=== PATIENT | female | born 1965 | race Caucasian/White ===

== ENCOUNTER 2022-09-02 17:22 | Emergency (ER) | payer OTHER ==
[~2022-09-02 17:22] MED LIST: AMLODIPINE5 MG PO; ATARAX25 MG PO; BACTRIM DS 8001 TA1 PO; BP MEDS; CLINDAMYCIN HC300 MG PO; CLINDAMYCIN300 MG PO; ESTRACE2 MG PO; ESTRODOL; HUMIRA40 MG/0.1 SC; INTEGRA PO; MOTRIN800 MG PO; NORFLEX100 MG PO; Synthroid,Lev150 MCG PO; ZITHROMAX250 MG PO; [UNRECOGNIZED DRUG - OTHER]
[2022-09-02] MEDS ORDERED: HYDROCODONE-AC1 EAC1 PO (18:00)
[2022-09-02] MEDS ORDERED: AMOX-CLAV 875-1 EACH PO (18:00)
== END 2022-09-02 18:41 | disposition home or self-care (01) ==
LOC: ED 17:22
DX: K02.9 Dental caries, unspecified (principal); Z79.899 Other long term (current) drug therapy